=== PATIENT | male | born 1985 | race Caucasian/White ===

== ENCOUNTER → 2019-02-21 16:41 | Outpatient (CLI) | payer BC, SELFPAY ==
[2019-02-21 18:10] LABS: Hematocrit 47.5 % (40-54); Hemoglobin 16.1 g/dL (13.0-16.5); Mean Corp Hgb Conc 33.9 g/dL (32-36); Mean Corpuscular Volume 85.6 fL (80-94); Mean Platelet Vol. 10.3 fl (6.2-12.0); Platelet Count 165 K/mm3 (150-450); RBC Distribution Width CV 12.9 % (11.6-14.6); RBC Distribution Width SD 39.3 fl (35.1-43.9); Red Blood Count 5.55 M/mm3 (4.6-6.2); White Blood Count 7.4 K/mm3 (4.4-11.0)
[2019-02-21 18:29] LABS: Hemoglobin A1c 4.8 % (4.2-6.3)
[2019-02-21 18:53] LABS: Progesterone Level 0.44 ng/mL (See Comment); Vitamin B12 1506 pg/mL (211-911); Vitamin D,25 Hydroxy 60.4 ng/mL (29.95-100.01)
[2019-02-21 19:09] LABS: ALB/GLOB Ratio 1.4 RATIO (0.9-2.4); AST(SGOT) 20 U/L (15-37); Alanine Aminotransfer ALT/SGPT 40 U/L (16-61); Albumin, Serum 4.6 g/dL (3.2-5.0); Alkaline Phosphatase 49 U/L (45-117); Anion Gap 10 (5-15); BUN 16 mg/dL (7-18); BUN/Creat Ratio 16.9 RATIO (10-20); CRP < 2.90 mg/L (0.0-3.0); Calcium,Total 9.3 mg/dL (8.5-10.1); Chloride 105 mmol/L (98-107); Cholesterol 184 mg/dL (200); Creatinine, Serum 0.95 mg/dL (0.70-1.30); EST Glomerular Filtration Rate 96 mL/min (>60); Est Glom Filt Rate - Afr Amer 117 mL/min (>60); Estradiol 20.6 pg/mL; Free T3 3.3 pg/mL (2.18-3.98); Globulin 3.3 g/dL (2.2-4.2); Glucose 89 mg/dL (74-106); High Density Lipoprotein 45 mg/dL; Iron 62 ug/dL (65-175); Luteinizing Hormone 4.1 mIU/mL; Magnesium 1.9 mg/dL (1.6-2.6); PSA,Total - Annual Screen 0.94 ng/mL (0.00-4.00); Potassium 3.8 mmol/L (3.5-5.1); Prolactin 9.1 ng/mL; Protein, Total 7.9 g/dL (6.4-8.2); Sodium Level 143 mmol/L (136-145); T4 Free Direct 1.03 ng/dL (0.76-1.46); T4 Total, Thyroxin 9.8 ug/dL (4.5-12.1); Thyroid Stim Hormone (TSH) 0.79 uIU/mL (0.358-3.74); Triglycerides 118 mg/dL; Very Low Density Lipoprotein 24 mg/dL (5-40)
[2019-02-22 17:02] LABS: CRP, High Sensitivity Cardiac 1.79 mg/L
[2019-02-25 12:08] LABS: DHEA Sulfate 234.8 ug/dL (138.5-475.2); Insulin Like Growth Factor 196 ng/mL (88-246); Testosterone, % Free 2.98 % (1.50-4.20); Testosterone, Free 8.94 ng/dL (5.00-21.00)
[2019-02-25 16:07] LABS: Sex Hormone-binding Globulin 20.7 nmol/L (16.5-55.9); Testosterone, Total 300 ng/dL (264-916)
== END ==
PROVIDERS: Family Provider Family Medicine; PCP Family Medicine
DX: R53.82 Chronic fatigue, unspecified (principal); E66.9 Obesity, unspecified
CPT/HCPCS: 36415; 80053; 80061; 82306; 82533; 82607; 82627; 82670; 82746; 83001; 83002; 83036; 83090; 83540; 83735; 84144; 84146; 84153; 84270; 84305; 84402; 84403; 84436; 84439; 84443; 84481; 85027; 86140; 86141; 82626; G0103

== ENCOUNTER → 2019-09-27 07:19 | Outpatient (CLI) | payer BC, SELFPAY ==
[2019-09-27 10:01] LABS: Absolute Lymphocyte Count 2.15 X10^3/uL (0.83-4.51); Absolute Neutrophil Count 3.6 X10^3/uL (2.0-7.7); Basophil# 0.02 X10^3/uL; Basophil% 0.3 % (0-1); Eosinophil# 0.08 X10^3/uL; Eosinophils% 1.2 % (0-5); Hematocrit 51.8 % (40-54); Hemoglobin 17.5 g/dL (13.0-16.5); Lymphocyte # 2.15 X10^3/ul (4.0); Lymphocyte % 33.2 % (19-41); Mean Corp Hgb Conc 33.8 g/dL (32-36); Mean Corpuscular Hgb 29.1 pg (27.0-32.0); Mean Corpuscular Volume 86.2 fL (80-94); Mean Platelet Vol. 10.3 fl (6.2-12.0); Monocyte# 0.57 X10^3/uL; Monocyte% 8.8 % (0-10); NRBC Flagged by Analyzer 0 % (0-5); Neutrophil # 3.63 X10^3/uL (2.7-7.7); Neutrophil % 56.2 % (47-70); Platelet Count 184 K/mm3 (150-450); RBC Distribution Width CV 12.9 % (11.6-14.6); RBC Distribution Width SD 39.9 fl (35.1-43.9); Red Blood Count 6.01 M/mm3 (4.6-6.2); White Blood Count 6.5 K/mm3 (4.4-11.0)
[2019-09-27 10:46] LABS: Estradiol 47.4 pg/mL
[2019-10-01 12:07] LABS: Testosterone, Free 19.38 ng/dL (5.00-21.00)
[2019-10-01 14:58] LABS: Testosterone, % Free 3.28 % (1.50-4.20); Testosterone, Total 591 ng/dL (264-916)
== END ==
PROVIDERS: PCP Family Medicine; Referring Provider Preventive Medicine Public Health & General Preventive Medicine; Visit Provider Preventive Medicine Public Health & General Preventive Medicine
DX: E34.9 Endocrine disorder, unspecified (principal); E29.1 Testicular hypofunction
CPT/HCPCS: 36415; 82670; 84402; 84403; 85025

== ENCOUNTER → 2020-01-24 07:08 | Outpatient (CLI) | payer BC, SELFPAY ==
[2020-01-24 11:03] LABS: Estradiol 26.8 pg/mL
[2020-01-24 11:08] LABS: Absolute Neutrophil Count 4.1 X10^3/uL (2.0-7.7); Basophil# 0.01 X10^3/uL; Basophil% 0.1 % (0-1); Eosinophil# 0.06 X10^3/uL; Eosinophils% 0.9 % (0-5); Hematocrit 54.9 % (40-54); Lymphocyte % 29.7 % (19-41); Mean Corp Hgb Conc 34.4 g/dL (32-36); Mean Corpuscular Hgb 29.4 pg (27.0-32.0); Mean Corpuscular Volume 85.5 fL (80-94); Mean Platelet Vol. 10.5 fl (6.2-12.0); Monocyte% 7.4 % (0-10); NRBC Flagged by Analyzer 0 % (0-5); Neutrophil # 4.14 X10^3/uL (2.7-7.7); Neutrophil % 61.5 % (47-70); Platelet Count 193 K/mm3 (150-450); RBC Distribution Width CV 13.2 % (11.6-14.6); RBC Distribution Width SD 39.3 fl (35.1-43.9); Red Blood Count 6.42 M/mm3 (4.6-6.2); White Blood Count 6.7 K/mm3 (4.4-11.0)
[2020-01-24 11:15] LABS: Hemoglobin 18.9 g/dL (13.0-16.5)
[2020-01-26 09:10] LABS: Pathologist Review Reviewed
[2020-01-29 16:07] LABS: Testosterone, % Free 3.41 % (1.50-4.20)
[2020-01-30 00:31] LABS: PSA, Free 0.29 ng/mL; PSA, Free % 22.3 % (.); PSA, Total Ultrasensitive 1.3 ng/mL (0.0-4.0); Testosterone, Total 126 ng/dL (264-916)
== END ==
PROVIDERS: PCP Family Medicine; Referring Provider Preventive Medicine Public Health & General Preventive Medicine; Visit Provider Preventive Medicine Public Health & General Preventive Medicine
DX: E03.9 Hypothyroidism, unspecified (principal); E34.9 Endocrine disorder, unspecified; N40.1 Benign prostatic hyperplasia with lower urinary tract symptoms; R97.20 Elevated prostate specific antigen [PSA]; E29.1 Testicular hypofunction
CPT/HCPCS: 36415; 82627; 82670; 84153; 84154; 84402; 84403; 85025; 82626

== ENCOUNTER → 2020-05-01 08:42 | Outpatient (CLI) | payer BC, SELFPAY ==
[2020-05-01 10:03] LABS: Absolute Lymphocyte Count 1.87 X10^3/uL (0.83-4.51); Absolute Neutrophil Count 2.7 X10^3/uL (2.0-7.7); Basophil# 0.02 X10^3/uL; Basophil% 0.4 % (0-1); Eosinophil# 0.08 X10^3/uL; Eosinophils% 1.5 % (0-5); Hematocrit 52.5 % (40-54); Lymphocyte # 1.87 X10^3/ul (4.0); Lymphocyte % 36.1 % (19-41); Mean Corp Hgb Conc 34.5 g/dL (32-36); Mean Corpuscular Hgb 29.9 pg (27.0-32.0); Mean Corpuscular Volume 86.6 fL (80-94); Mean Platelet Vol. 10.1 fl (6.2-12.0); Monocyte# 0.47 X10^3/uL; Monocyte% 9.1 % (0-10); NRBC Flagged by Analyzer 0 % (0-5); Neutrophil # 2.73 X10^3/uL (2.7-7.7); Neutrophil % 52.7 % (47-70); Platelet Count 172 K/mm3 (150-450); RBC Distribution Width CV 12.7 % (11.6-14.6); RBC Distribution Width SD 39.7 fl (35.1-43.9); Red Blood Count 6.06 M/mm3 (4.6-6.2); White Blood Count 5.2 K/mm3 (4.4-11.0)
[2020-05-01 10:15] LABS: Differential Indicated SCAN CRITERIA MET; Hemoglobin 18.1 g/dL (13.0-16.5)
[2020-05-02 12:54] LABS: Pathologist Review Reviewed
[2020-05-06 12:07] LABS: Testosterone, Free 4.46 ng/dL (5.00-21.00)
[2020-05-07 20:57] LABS: Testosterone, % Free 2.99 % (1.50-4.20); Testosterone, Total 149 ng/dL (264-916)
== END ==
PROVIDERS: PCP Family Medicine; Referring Provider Preventive Medicine Public Health & General Preventive Medicine; Visit Provider Preventive Medicine Public Health & General Preventive Medicine
DX: E34.9 Endocrine disorder, unspecified (principal); E29.1 Testicular hypofunction
CPT/HCPCS: 36415; 84402; 84403; 85025